=== PATIENT | female | born 1995 | race Caucasian/White ===

== ENCOUNTER 2017-02-14 04:33 | Emergency (ER) | payer MEDICAID ==
[~2017-02-14] VITALS: Ht 167.6 cm; Wt 73.0 kg
[~2017-02-14 04:33] MED LIST: ALBU2.5V13; FLUT1DIS; IBUP-1636
[2017-02-14] MEDS ORDERED: METHYLPREDNISOLONE SOD SUCC 40 MG/ML VIAL IM ONE (05:00)
[2017-02-14] MEDS ORDERED: IPRATROPIUM/ALBUTEROL 0.5-3(2.5)MG/3ML NEB HHN PRN (05:00)
[2017-02-14 06:21] VITALS: BP 119/65
== END 2017-02-14 06:21 | disposition home or self-care (01) ==
LOC: ER 04:33
DX: J45.909 Unspecified asthma, uncomplicated (principal); Z79.899 Other long term (current) drug therapy
CPT/HCPCS: 94640; 96372; 99283; J2920; J7620

== ENCOUNTER 2022-09-29 00:51 | Emergency (ER) | payer MEDICAID ==
[~2022-09-29] VITALS: Ht 167.6 cm; Wt 86.0 kg
[2022-09-29 01:09] VITALS: BP 115/72
[2022-09-29] MEDS ORDERED: ALBU6.7H3 INH (16:44)
[2022-09-29] MEDS ORDERED: PSEU120T56 MT (16:44)
== END 2022-09-29 04:37 | disposition left against medical advice (07) ==
LOC: ER 00:51
DX: Z53.21 Procedure and treatment not carried out due to patient leaving prior to being seen by health care provider (principal)

== ENCOUNTER 2022-09-29 13:16 | Emergency (ER) | payer MEDICAID ==
[~2022-09-29] VITALS: Ht 167.6 cm; Wt 91.0 kg
[2022-09-29 13:20] VITALS: BP 132/78
[2022-09-29] MEDS ORDERED: ALBU6.7H3 INH (16:44)
[2022-09-29] MEDS ORDERED: PSEU120T56 MT (16:44)
== END 2022-09-29 17:27 | disposition home or self-care (01) ==
LOC: ER 13:16
DX: J45.901 Unspecified asthma with (acute) exacerbation (principal); J06.9 Acute upper respiratory infection, unspecified; R05.9 Cough, unspecified
CPT/HCPCS: 99281